=== PATIENT | female | born 1980 | race Caucasian/White ===

== ENCOUNTER 2018-10-27 04:46 | Emergency (ER) | payer OTHER ==
[~2018-10-27] VITALS: Ht 157.5 cm; Wt 68.0 kg
[~2018-10-27 04:46] MED LIST: IBUP-2030; OMEP20CA4; PREG150C; PROP20TA7
[2018-10-27] MEDS ORDERED: ACETAMINOPHEN 325MG TABLET PO STA (06:28)
[2018-10-27] MEDS ORDERED: DOCUSATE SODIUM 100MG CAPSULE PO ONE (06:30)
[2018-10-27 07:04] LABS: BASOPHILS % 0.4 % (0.0-2.0); HEMATOCRIT. 36.9 % (36.0-48.0); HEMOGLOBIN. 11.7 g/dL (12.0-16.0); LYMPHOCYTES % 9.8 % (20.0-50.0); MEAN CORPUSCULAR HEMOGLOBIN 26.1 pg (28.0-32.0); MEAN CORPUSCULAR VOLUME 82.1 fL (81.0-99.0); MEAN PLATELET VOLUME 9.3 fl (7.4-10.4); MONOCYTES % 6.8 % (2.0-8.0); PLATELET 335 x1000/uL (130-400); RED BLOOD CELL COUNT 4.49 mill/uL (4.2-5.4); RED CELL DISTRIBUTION WIDTH 20.1 % (11.6-14.6)
[2018-10-27 07:08] LABS: CHLORIDE 106 mEq/L (98-107)
[2018-10-27 09:17] VITALS: BP 109/68
== END 2018-10-27 09:50 | disposition home or self-care (01) ==
LOC: ER 04:46
DX: B34.9 Viral infection, unspecified (principal); D64.9 Anemia, unspecified; M79.7 Fibromyalgia; Z90.49 Acquired absence of other specified parts of digestive tract; R06.02 Shortness of breath
CPT/HCPCS: 36415; 81025; 87070; 87430; 87804; 99283